=== PATIENT | male | born 2000 | race African-American/Black ===

== ENCOUNTER 2018-03-12 10:57 | Emergency (ER) | payer BC ==
--- NOTE | 2018-03-12 11:41 | ED ---
GI/ HPI - HPI Summary HPI Summary: Patient is a 17 y/o M w/ c/o right testicular pain onsetting 0100 today. He reports having sex with his girlfriend when he experienced testicular pain, right-sided. Pain onset was immediate. Testicle is described as tender and inflamed. He reports palpation aggravates pain, nothing is reported to alleviate Sx on triage. On triage, pain is rated 5/10. Pain has lessened since onset. He denies blood in urine/semen, joint pain, eye redness. Abnormal penile discharge is denied. Patient reports no PHMx of STDs. He denies taking any medications after pain onset. Patient was seen at [facility], was sent to hospital to rule out torsion. Patient takes 10 mg of Adderall daily for ADHD. Home medications and allergies reviewed. - History of Current Complaint Chief Complaint: EDUrogenitalProblems Time Seen by Provider: 03/12/18 11:13 Stated Complaint: TORSION Hx Obtained From: Patient Onset/Duration: Started Hours Ago - onset today at 0100, Still Present Timing: Constant, Lasting Hours - onset 0100 today Severity: Severe Current Severity: Moderate - 5/10 Pain Intensity: 5 Additional Locations for Males: Testicles - right sided Associated Signs and Symptoms: Positive: Other: - NEGATIVE: joint pain, eye redness, blood in semen. Negative: Hematuria Aggravating Factor(s): Palpation Alleviating Factor(s): Nothing - Allergy/Home Medications Allergies/Adverse Reactions: Allergies Allergy/AdvReac Type Severity Reaction Status Date / Time No Known Allergies Allergy Verified 03/12/18 11:34 Home Medications: Home Medications Amphetamine MIXED SALT TAB* [Adderall TAB*] 10 mg PO DAILY 03/12/18 [History Confirmed 03/12/18] PMH/Surg Hx/FS Hx/Imm Hx Sensory History: Denies: Hx Legally Blind Opthamlomology History: Denies: Hx Legally Blind Psychiatric History: Reports: Hx Attention Deficit Hyperactivity Disorder - Immunization History Immunizations Up to Date: Yes Infectious Disease History: No Infectious Disease History: Denies: Traveled Outside the [place] in Last 30 Days - Family History Known Family History: Negative: Blood Disorder - Social History Alcohol Use: Weekly Alcohol Amount: on the weekends Substance Use Type: Reports: Marijuana Substance Use Comment - Amount & Last Used: occasionally Smoking Status (MU): Never Smoked Tobacco Review of Systems Negative: Erythema Positive: other - POSITIVE: right sided testicular pain, right sided testicular tenderness and erythema NEGATIVE: blood in urine/semen; abnormal penile discharge Positive: Other - NEGATIVE: joint pain All Other Systems Reviewed And Are Negative: Yes Physical Exam - Summary Physical Exam Summary: Appearance: Well appearing, no pain distress Skin: warm, dry, reflects adequate perfusion Head/face: normal Eyes: EOMI, ANIRUDH ENT: normal Neck: supple, non-tender Respiratory: CTA, breath sounds present Cardiovascular: RRR, pulses symmetrical Abdomen: non-tender, soft Bowel Sounds: present Musculoskeletal: normal, strength/ROM intact Neuro: normal, sensory motor intact, A&Ox3 Testicles: diffuse scrotal edema, worse on the right; no enlargement of testes. Triage Information Reviewed: Yes Vital Signs On Initial Exam: Initial Vitals Temp Pulse Resp BP Pulse Ox 97.8 F 70 16 146/70 100 03/12/18 11:01 03/12/18 11:01 03/12/18 11:01 03/12/18 11:01 03/12/18 11:01 Vital Signs Reviewed: Yes Diagnostics - Vital Signs Vital Signs Temp Pulse Resp BP Pulse Ox 03/12/18 11:01 97.8 F 70 16 146/70 100 - Laboratory Lab Statement: Any lab studies that have been ordered have been reviewed, and results considered in the medical decision making process. - Ultrasound No standard instances Ultrasound Interpretation: Positive (See Comments) Ultrasound Interpretation Completed By: Radiologist - IMPRESSION: 1. NO EVIDENCE FOR TESTICULAR INJURY. 2. LARGE MASS LOCATED BETWEEN THE TESTICLES NONSPECIFIC SUGGESTIVE OF A HEMATOMA. RECOMMEND CLINICAL CORRELATION. 3. LEFT VARICOCELE. THIS REPORT WAS REVIEWED BY ED PHYSICIAN. Re-Evaluation - Re-Evaluation First Eval Re-Evaluation Time: 12:14 Comment: Informed patient of results of labs and tests. Patient will be discharged to home and follow up with urologist. He is agreeable with this plan. GIGU Course/Dx - Course Course Of Treatment: Patient with acute pain during intercourse and ultrasound consistent with possible hematoma. Underlying mass could not be ruled out per radiologist. He is given urology follow-up and will do warm compresses, massage on the area and NSAID. Discharged in good condition. No torsion. - Diagnoses Differential Diagnoses - Male: Other - Epididymitis, testicular mass, testicular torsion, ruptured cyst or varicocele Provider Diagnoses: Scrotal hematoma - Physician Notifications Discussed Care Of Patient With: Jose Eduardo Montoya Time Discussed With Above Provider: 12:10 Instructed by Provider To: Other - Dr. Montoya was consulted on patient's case at 1210. Dr. Montoya believes US shows possible hematoma vs scrotal mass. As there is no urology coverage today, patient will be discharged to home and follow up with urology. Discharge - Sign-Out/Discharge Documenting (check all that apply): Patient Departure - discharge - Discharge Plan Condition: Improved Disposition: HOME Patient Education Materials: Hematoma (ED) Referrals: [facility] [[facility], APPLICATION, OTHER] - Mickey Barry MD [Medical Doctor] - Additional Instructions: Tylenol, ibuprofen for discomfort. Avoid any intercourse or impacts to the region. Warm compresses to the area may help. Return if worse, fever, new symptoms or other concerns as discussed. Follow up with urology with a call today. - Billing Disposition and Condition Condition: IMPROVED Disposition: Home - Attestation Statements Document Initiated by Scribe: Yes Documenting Scribe: Tejinder Santos Provider For Whom Scribe is Documenting (Include Credential): Alexis Yeung MD Scribe Attestation: I, Tejinder Santos, scribed for Alexis Yeung MD on 03/12/18 at 1727. Scribe Documentation Reviewed: Yes Provider Attestation: The documentation as recorded by the Tejinder reveles accurately reflects the service I personally performed and the decisions made by me, Alexis Yeung MD
--- NOTE | 2018-03-12 12:15 | RAD ---
INDICATION: Trauma during intercourse, swelling evaluate for torsion. COMPARISON: There are no relevant prior studies available for comparison. TECHNIQUE: Multiple real-time images of the testicles were obtained including color Doppler images and Doppler tracings. FINDINGS: The testicles are normal in size, shape and echogenicity. The right testicle measured 4.6 x 2.5 x 3.7 cm and the left testicle measured 4.5 x 2.2 x 3.3 cm. No intratesticular mass is seen. There is symmetric vascular flow within both testicles. The epididymides appear to be within normal limits. No hydrocele is seen. There is a moderate size varicocele present on the left side. There is a mass located between the testicles which is heterogeneous in echogenicity measuring 6.2 x 3.2 x 4.2 cm suggestive of a hematoma. Recommend clinical correlation. IMPRESSION: 1. NO EVIDENCE FOR TESTICULAR INJURY. 2. LARGE MASS LOCATED BETWEEN THE TESTICLES NONSPECIFIC SUGGESTIVE OF A HEMATOMA. RECOMMEND CLINICAL CORRELATION. 3. LEFT VARICOCELE.
[2018-03-12 12:40] VITALS: BP 142/77
== END 2018-03-12 12:39 | disposition home or self-care (01) ==
LOC: ED 10:57
DX: S30.22XA Contusion of scrotum and testes, initial encounter (principal); X58.XXXA Exposure to other specified factors, initial encounter; Y92.9 Unspecified place or not applicable; F90.9 Attention-deficit hyperactivity disorder, unspecified type
CPT/HCPCS: 76870; 87491; 87591; 99282